=== PATIENT | female | born 1950 | race Two or more races ===

== ENCOUNTER 2018-10-25 15:36 | Outpatient (CLI) | payer OTHER ==
[2018-10-28] MEDS ORDERED: FOSINOPRIL-HCT1 EAC1 (13:09)
== END 2018-10-25 15:40 | disposition home or self-care (01) ==
LOC: RAD 15:36
DX: S90.921A Unspecified superficial injury of right foot, initial encounter (principal)

== ENCOUNTER → 2018-10-28 | Emergency (ER) | payer OTHER ==
[~2018-10-28] VITALS: Ht 160 cm; Wt 59.4 kg
[~2018-10-28] MED LIST: FOSINOPRIL-HCT1 EAC1
== END | disposition home or self-care (01) ==
LOC: ER 12:35
DX: S90.31XA Contusion of right foot, initial encounter (principal); W18.39XA Other fall on same level, initial encounter; Y93.89 Activity, other specified; Y92.520 Airport as the place of occurrence of the external cause; Y99.8 Other external cause status

== ENCOUNTER → 2020-10-13 | Outpatient (CLI) | payer OTHER | END | disposition home or self-care (01) | LOC: OFIC 805 10:08 | PROVIDERS: ATTEND Otolaryngology | DX: H90.41 Sensorineural hearing loss, unilateral, right ear, with unrestricted hearing on the contralateral side (principal); H61.23 Impacted cerumen, bilateral ==

== ENCOUNTER 2020-11-11 11:28 | Outpatient (CLI) | payer OTHER | END 2020-11-11 13:00 | disposition home or self-care (01) | LOC: OFIC 805 11:28 | PROVIDERS: ATTEND Otolaryngology | DX: H90.41 Sensorineural hearing loss, unilateral, right ear, with unrestricted hearing on the contralateral side (principal); H92.01 Otalgia, right ear; H61.23 Impacted cerumen, bilateral ==

== ENCOUNTER → 2020-11-24 | Outpatient (CLI) | payer OTHER | END | disposition home or self-care (01) | LOC: OFIC 805 10:00 | PROVIDERS: ATTEND Otolaryngology | DX: H90.41 Sensorineural hearing loss, unilateral, right ear, with unrestricted hearing on the contralateral side (principal); H92.01 Otalgia, right ear; H90.71 Mixed conductive and sensorineural hearing loss, unilateral, right ear, with unrestricted hearing on the contralateral side; H61.21 Impacted cerumen, right ear ==

== ENCOUNTER → 2020-12-02 | Outpatient (CLI) | payer OTHER | END | disposition home or self-care (01) | LOC: OFIC 805 12:10 | PROVIDERS: ATTEND Otolaryngology | DX: H90.71 Mixed conductive and sensorineural hearing loss, unilateral, right ear, with unrestricted hearing on the contralateral side (principal) ==